=== PATIENT | female | born 1945 | race African-American/Black ===

== ENCOUNTER 2018-10-16 22:08 | Emergency (ER) | payer MEDICARE ==
[~2018-10-16] VITALS: Ht 165.1 cm; Wt 118.0 kg
[~2018-10-16 22:08] MED LIST: ASPI-986 PO; CHOL500010 PO; CLOP75TA33 PO; FLUT1DIS INH; SEVE800T8 PO
[2018-10-16] MEDS ORDERED: DEXTROSE 50% WATER 50ML SYRINGE IV ONE (22:45)
[2018-10-16 23:21] LABS: BASOPHILS % 0.9 % (0.0-2.0); EOSINOPHILS % 0.7 % (0.0-5.0); HEMATOCRIT. 31.6 % (36.0-48.0); HEMOGLOBIN. 10.5 g/dL (12.0-16.0); LYMPHOCYTES % 7.1 % (20.0-50.0); MEAN CORPUSCULAR HEMOGLOBIN 28.3 pg (28.0-32.0); MEAN CORPUSCULAR VOLUME 85.5 fL (81.0-99.0); MEAN PLATELET VOLUME 7.6 fl (7.4-10.4); MONOCYTES % 9.9 % (2.0-8.0); NEUTROPHILS % 81.4 % (40.0-76.0); PLATELET 308 x1000/uL (130-400); RED CELL DISTRIBUTION WIDTH 17.8 % (11.6-14.6)
[2018-10-16 23:25] LABS: CHLORIDE 104 mEq/L (98-107)
[2018-10-17 01:45] VITALS: BP 100/64
== END 2018-10-17 01:45 | disposition home or self-care (01) ==
LOC: ER 22:08
DX: E11.649 Type 2 diabetes mellitus with hypoglycemia without coma (principal); E11.22 Type 2 diabetes mellitus with diabetic chronic kidney disease; I12.0 Hypertensive chronic kidney disease with stage 5 chronic kidney disease or end stage renal disease; N18.6 End stage renal disease; Z99.2 Dependence on renal dialysis; Z79.4 Long term (current) use of insulin; Z88.5 Allergy status to narcotic agent
CPT/HCPCS: 36415; 82962; 99283

== ENCOUNTER 2018-10-22 05:26 | Inpatient (IN) | payer MEDICARE ==
[~2018-10-22] VITALS: Ht 162.6 cm; Wt 88.0 kg
[2018-10-22 07:04] LABS: BASOPHILS % 0.6 % (0.0-2.0); EOSINOPHILS % 0.7 % (0.0-5.0); HEMATOCRIT. 32.9 % (36.0-48.0); HEMOGLOBIN. 10.8 g/dL (12.0-16.0); LYMPHOCYTES % 12.5 % (20.0-50.0); MEAN CORPUSCULAR HEMOGLOBIN 27.8 pg (28.0-32.0); MEAN CORPUSCULAR VOLUME 84.9 fL (81.0-99.0); MEAN PLATELET VOLUME 7.6 fl (7.4-10.4); MONOCYTES % 7.6 % (2.0-8.0); NEUTROPHILS % 78.6 % (40.0-76.0); PLATELET 363 x1000/uL (130-400); RED BLOOD CELL COUNT 3.88 mill/uL (4.2-5.4); RED CELL DISTRIBUTION WIDTH 18.8 % (11.6-14.6)
[2018-10-22 07:05] LABS: CHLORIDE 101 mEq/L (98-107)
[2018-10-22] MEDS ORDERED: CLOPIDOGREL 75MG TABLET PO SCH (11:30)
[2018-10-22] MEDS ORDERED: SEVELAMER CARBONATE 800 MG TABLET PO SCH (13:00)
[2018-10-22 14:22] VITALS: BP 121/55
[2018-10-22] MEDS: CLOPIDOGREL 75MG TABLET PO SCH (15:14)
[2018-10-22] MEDS: FOLIC ACID/VITAMIN B COMP W-C TABLET PO SCH (15:14)
[2018-10-22 16:00] VITALS: BP 92/39
[2018-10-22 16:40] LABS: PHOSPHORUS 3.4 mg/dL (2.5-4.9)
[2018-10-22] MEDS: SEVELAMER CARBONATE 800 MG TABLET PO SCH (17:34)
[2018-10-22] MEDS ORDERED: ACETAMINOPHEN 325MG TABLET PO PRN (17:45)
[2018-10-22] MEDS ORDERED: ENOXAPARIN 40MG/0.4ML SYR SUBCUT SCH (18:00)
[2018-10-22] MEDS ORDERED: DEXTROSE 50% WATER 50ML SYRINGE IV PRN (18:30)
[2018-10-22 20:00] VITALS: BP 100/37
[2018-10-22] MEDS: BUDESONIDE 0.5MG/2ML NEB HHN SCH (20:10)
[2018-10-22] MEDS: IPRATROPIUM/ALBUTEROL 0.5-3(2.5)MG/3ML NEB INH PRN (20:10)
[2018-10-22] MEDS ORDERED: CALCIUM GLUCONATE 2,000 MG in DEXT 5% WATER 90 ML IV ONE (20:15)
[2018-10-22] MEDS: INSULIN LISPRO 100 UNITS/ML SUBCUT SCH ×2 (21:00→23:44)
[2018-10-22] MEDS ORDERED: PARICALCITOL 5 MCG/ML 1ML IV SCH (21:00)
[2018-10-22] MEDS: BLOOD SUGAR DIAGNOSTIC STRIP TEST SCH (21:00)
[2018-10-22] MEDS ORDERED: EPOETIN ALFA 4000UNITS/ML VIAL SUBCUT SCH (21:00)
[2018-10-22] MEDS ORDERED: PARICALCITOL 2 MCG/ML VIAL IV SCH (22:00)
[2018-10-22] MEDS: SODIUM CHLORIDE 0.9% INJ 3ML FLUSH IVF SCH (22:22)
[2018-10-22] MEDS: OMEPRAZOLE 20MG CAPSULE EXTENDED RELEASE PO SCH (22:23)
[2018-10-23] VITALS: BP 102/40
[2018-10-23 04:00] VITALS: BP 105/48
[2018-10-23] MEDS: SODIUM CHLORIDE 0.9% INJ 3ML FLUSH IVF SCH ×2 (06:16→14:00)
[2018-10-23 06:21] LABS: BASOPHILS % 0.3 % (0.0-2.0); EOSINOPHILS % 1.4 % (0.0-5.0); HEMATOCRIT. 29.7 % (36.0-48.0); LYMPHOCYTES % 19.6 % (20.0-50.0); MEAN CORPUSCULAR HEMOGLOBIN 28.6 pg (28.0-32.0); MEAN CORPUSCULAR VOLUME 85.4 fL (81.0-99.0); MEAN PLATELET VOLUME 7.4 fl (7.4-10.4); MONOCYTES % 8.4 % (2.0-8.0); NEUTROPHILS % 70.3 % (40.0-76.0); PLATELET 300 x1000/uL (130-400); RED BLOOD CELL COUNT 3.47 mill/uL (4.2-5.4); RED CELL DISTRIBUTION WIDTH 18.8 % (11.6-14.6)
[2018-10-23] MEDS: BLOOD SUGAR DIAGNOSTIC STRIP TEST SCH ×2 (07:40→12:40)
[2018-10-23] MEDS: INSULIN LISPRO 100 UNITS/ML SUBCUT SCH ×2 (07:57→13:10)
[2018-10-23 08:00] VITALS: BP 100/40
[2018-10-23] MEDS ORDERED: REGADENOSON 0.4 MG/5 ML IV ONE ×2 (08:00→12:21)
[2018-10-23] MEDS: BUDESONIDE 0.5MG/2ML NEB HHN SCH (08:08)
[2018-10-23] MEDS: IPRATROPIUM/ALBUTEROL 0.5-3(2.5)MG/3ML NEB INH PRN (08:08)
[2018-10-23] MEDS ORDERED: ASPIRIN 325MG EC TABLET PO SCH (09:00)
[2018-10-23 12:00] VITALS: BP 121/49
[2018-10-23] MEDS: SEVELAMER CARBONATE 800 MG TABLET PO SCH ×2 (13:10→14:45)
[2018-10-23] MEDS: OMEPRAZOLE 20MG CAPSULE EXTENDED RELEASE PO SCH (14:44)
[2018-10-23] MEDS: FOLIC ACID/VITAMIN B COMP W-C TABLET PO SCH (14:44)
[2018-10-23] MEDS: CLOPIDOGREL 75MG TABLET PO SCH (14:45)
[2018-10-23 15:21] VITALS: BP 115/87
[2018-10-23 16:00] VITALS: BP 128/54
[2018-10-23] MEDS ORDERED: ENOXAPARIN 30MG/0.3ML SYR SUBCUT SCH (18:00)
== END 2018-10-23 16:50 | disposition home or self-care (01) | DRG 391 ==
LOC: ER 05:26 → 7WST 07:40 → EDBEDREQ 09:27 → ENRESERV 12:12
PROVIDERS: ADMIT Internal Medicine; ATTEND Internal Medicine
PROC: 5A1D70Z Performance of Urinary Filtration, Intermittent, Less than 6 Hours Per Day (ICD-10-PCS; principal; 2018-10-22)
DX: K21.9 Gastro-esophageal reflux disease without esophagitis (principal); N18.6 End stage renal disease; I47.1 Supraventricular tachycardia; I13.2 Hypertensive heart and chronic kidney disease with heart failure and with stage 5 chronic kidney disease, or end stage renal disease; E46 Unspecified protein-calorie malnutrition; J98.11 Atelectasis; N25.81 Secondary hyperparathyroidism of renal origin; I43 Cardiomyopathy in diseases classified elsewhere; R07.89 Other chest pain; D63.1 Anemia in chronic kidney disease; E11.22 Type 2 diabetes mellitus with diabetic chronic kidney disease; E11.319 Type 2 diabetes mellitus with unspecified diabetic retinopathy without macular edema; E11.43 Type 2 diabetes mellitus with diabetic autonomic (poly)neuropathy; E11.51 Type 2 diabetes mellitus with diabetic peripheral angiopathy without gangrene; E78.00 Pure hypercholesterolemia, unspecified; E78.5 Hyperlipidemia, unspecified; F41.1 Generalized anxiety disorder; G47.30 Sleep apnea, unspecified; I25.10 Atherosclerotic heart disease of native coronary artery without angina pectoris; I27.20 Pulmonary hypertension, unspecified; I34.0 Nonrheumatic mitral (valve) insufficiency; I50.9 Heart failure, unspecified; I95.89 Other hypotension; I45.4 Nonspecific intraventricular block; J06.9 Acute upper respiratory infection, unspecified; M25.50 Pain in unspecified joint; J44.9 Chronic obstructive pulmonary disease, unspecified; M10.9 Gout, unspecified; Z96.652 Presence of left artificial knee joint; E66.01 Morbid (severe) obesity due to excess calories; G89.29 Other chronic pain; M19.90 Unspecified osteoarthritis, unspecified site; E88.81 Metabolic syndrome and other insulin resistance; I25.2 Old myocardial infarction; Z79.02 Long term (current) use of antithrombotics/antiplatelets; Z79.4 Long term (current) use of insulin; Z79.82 Long term (current) use of aspirin; Z95.0 Presence of cardiac pacemaker; Z99.2 Dependence on renal dialysis; Z87.440 Personal history of urinary (tract) infections; Z90.710 Acquired absence of both cervix and uterus; Z91.14 Patient's other noncompliance with medication regimen; Z79.84 Long term (current) use of oral hypoglycemic drugs; Z90.49 Acquired absence of other specified parts of digestive tract; Z88.5 Allergy status to narcotic agent; Z68.33 Body mass index [BMI] 33.0-33.9, adult; Z82.49 Family history of ischemic heart disease and other diseases of the circulatory system; Z83.3 Family history of diabetes mellitus
CPT/HCPCS: 36415; 71045; 78452; 80048; 82330; 82962; 83735; 83880; 84100; 84443; 84484; 93005; 93017; 93306; 99285; A9500; J0610; J0885; J1650; J2501; J2785; J7050; J7060; J7620; J7626

== ENCOUNTER 2020-05-09 18:30 | Emergency (ER) | payer MEDICARE ==
[~2020-05-09] VITALS: Ht 162.6 cm; Wt 92.0 kg
[2020-05-09 20:20] LABS: BASOPHILS % 1.2 % (0.0-2.0); EOSINOPHILS % 2.1 % (0.0-5.0); HEMATOCRIT. 27.9 % (36.0-48.0); HEMOGLOBIN. 9.1 g/dL (12.0-16.0); LYMPHOCYTES % 12.5 % (20.0-50.0); MEAN PLATELET VOLUME 8.1 fl (7.4-10.4); MONOCYTES % 9.3 % (2.0-8.0); NEUTROPHILS % 74.9 % (40.0-76.0); PLATELET 245 x1000/uL (130-400); RED BLOOD CELL COUNT 3.36 mill/uL (4.2-5.4); RED CELL DISTRIBUTION WIDTH 16.9 % (11.6-14.6)
[2020-05-09 20:23] LABS: CHLORIDE 105 mEq/L (98-107)
[2020-05-10] MEDS ORDERED: ACETAMINOPHEN 650MG/20.3ML UDC PO ONE (00:30)
[2020-05-10 00:58] VITALS: BP 116/34
[2020-05-10] MEDS ORDERED: ACETAMINOPHEN 650MG/20.3ML UDC PO SCH (01:15)
== END 2020-05-10 02:14 | disposition home or self-care (01) ==
LOC: ER 18:30
DX: S62.644A Nondisplaced fracture of proximal phalanx of right ring finger, initial encounter for closed fracture (principal); E11.22 Type 2 diabetes mellitus with diabetic chronic kidney disease; I12.0 Hypertensive chronic kidney disease with stage 5 chronic kidney disease or end stage renal disease; N18.6 End stage renal disease; D63.1 Anemia in chronic kidney disease; E78.00 Pure hypercholesterolemia, unspecified; Z99.2 Dependence on renal dialysis; Z95.0 Presence of cardiac pacemaker; Z88.5 Allergy status to narcotic agent; Z79.82 Long term (current) use of aspirin; W01.0XXA Fall on same level from slipping, tripping and stumbling without subsequent striking against object, initial encounter; Y93.89 Activity, other specified; Y92.89 Other specified places as the place of occurrence of the external cause; Y99.8 Other external cause status
CPT/HCPCS: 29130; 36415; 71045; 73110; 73130; 73562; 80053; 83880; 84484; 85025; 93005; 99285

== ENCOUNTER 2020-08-13 15:34 | Emergency (ER) | payer MEDICARE ==
[~2020-08-13] VITALS: Ht 170.2 cm; Wt 100.0 kg
[2020-08-13 15:38] VITALS: BP 129/44
[2020-08-13] MEDS ORDERED: TRANEXAMIC ACID 1,000 MG/10 ML TP ONE (16:00)
[2020-08-13 16:21] LABS: BASOPHILS % 1.1 % (0.0-2.0); EOSINOPHILS % 2.2 % (0.0-5.0); HEMATOCRIT. 27.2 % (36.0-48.0); HEMOGLOBIN. 8.8 g/dL (12.0-16.0); LYMPHOCYTES % 16.9 % (20.0-50.0); MEAN CORPUSCULAR HEMOGLOBIN 25.6 pg (28.0-32.0); MEAN CORPUSCULAR VOLUME 78.8 fL (81.0-99.0); MEAN PLATELET VOLUME 6.8 fl (7.4-10.4); MONOCYTES % 5.6 % (2.0-8.0); NEUTROPHILS % 74.2 % (40.0-76.0); PLATELET 327 x1000/uL (130-400); RED BLOOD CELL COUNT 3.46 mill/uL (4.2-5.4); RED CELL DISTRIBUTION WIDTH 18.7 % (11.6-14.6)
[2020-08-13 16:28] LABS: INR 1.1; PROTHROMBIN TIME 11.4 sec (9.6-11.0)
[2020-08-13 16:29] LABS: CHLORIDE 108 mEq/L (98-107)
[2020-08-13] MEDS ORDERED: ACETAMINOPHEN 325MG TABLET PO ONE (17:15)
[2020-08-13] MEDS ORDERED: AMOX-424 MT (17:50)
[2020-08-13] MEDS ORDERED: AMOXICILLIN/POTASSIUM CLAVULANATE 875/125MG TAB PO ONE (18:00)
== END 2020-08-13 18:53 | disposition home or self-care (01) ==
LOC: ER 15:38
DX: R04.0 Epistaxis (principal); N18.6 End stage renal disease; J32.9 Chronic sinusitis, unspecified; E11.9 Type 2 diabetes mellitus without complications; Z95.0 Presence of cardiac pacemaker; Z98.890 Other specified postprocedural states; Z79.82 Long term (current) use of aspirin; Z88.5 Allergy status to narcotic agent; Z79.899 Other long term (current) drug therapy
CPT/HCPCS: 36415; 80053; 85025; 99283